=== PATIENT | female | born 1960 | race Caucasian/White ===

== ENCOUNTER 2020-06-27 08:38 | Outpatient (CLI) | payer MEDICARE, MEDICAID, SELFPAY ==
--- NOTE | ~2020-06-27 | DEXA_ITS ---
BMD(1) Young-Adult(2) Age-Matched(3) Region (g/cm2) T-score Z-score WHO Classification L1 1.381 2.0 2.7 Normal L2 1.425 1.8 2.5 Normal L3 1.402 1.5 2.2 Normal L4 1.573 2.8 3.5 Normal L1-L4 1.455 2.1 2.8 Normal Trend: L1-L4 Change vs Change vs Measured Age BMD(1) Baseline Previous Date ([age]) (g/cm2) (%) (%) 06/27/2020 [age] 1[age]455 baseline - 1 - Statistically 68% of repeat scans fall within 1SD (+- 0.010 g/cm2 for AP Spine L1-L4) 2 - [place] (Combined [employer]ES (ages 20-30) / [employer] (ages 20-40)) AP Spine Reference Population (v112) 3 - Matched for Age, Weight (females 25-100 kg), Ethnic 11 - World Health Organization - Definition of Osteoporosis and Osteopenia for Women: Normal = T-score at or above -1.0 SD; Osteopenia = T-score between -1.0 and -2.5 SD; Osteoporosis = T-score at or below -2.5 SD; (WHO definitions only apply when a young healthy Women reference database is used to determine T-scores.) Printed: 06/27/2020 9:10:04 AM (13.60)76:3.00:50.00:12.0 0.00:10.38 0.60x1.05 27.6:%Fat=46.8% 0.00:0.00 0.00:0.00 Filename: [id number] Scan Mode: Standard;OneScan 37.0 Continuum [id number] BMD(1) Young-Adult(2,7) Age-Matched(3) Region (g/cm2) T-score Z-score WHO Classification Neck Left 0.851 -1.3 -0.4 Osteopenia Right 0.915 -0.9 0.1 Normal Mean 0.883 -1.1 -0.2 Osteopenia Difference 0.064 0.5 0.5 - Total Left 0.900 -0.9 -0.3 Normal Right 0.925 -0.7 -0.1 Normal Mean 0.912 -0.8 -0.2 Normal Difference 0.025 0.2 0.2 - Hip [place] Length Comparison (mm) (Right = 106.6 mm) (Mean = 104.5 mm) (Left = 107.7 mm) Trend: Total Mean Change vs Change vs Measured Age BMD(1) Baseline Previous Date [age]years) (g/cm2) (%) (%) 06/27/2020 60.2 0.912 baseline - 1 - Statistically 68% of repeat scans fall within 1SD (+- 0.010 g/cm2 for [employer]em[employer] Total) 2 - [place] (Combined [employer]ES (ages 20-30) / [employer] (ages 20-40)) Femur Reference Population (v112) 3 - Matched for Age, Weight (females 25-100 kg), Ethnic 7 - [employer] Total T-score difference is 0.2. Asymmetry is None. 11 - World Health Organization - Definition of Osteoporosis and Osteopenia for Women: Normal = T-score at or above -1.0 SD; Osteopenia = T-score between -1.0 and -2.5 SD; Osteoporosis = T-score at or below -2.5 SD; (WHO definitions only apply when a young healthy Women reference database is used to determine T-scores.) Printed: 06/27/2020 9:10:04 AM (13.60); Filename: [id number]; Right Femur; 19.3:%Fat=24.1%; Neck Angle (deg)= 58; Scan Mode: Standard 37.0 uGy; Left Femur; 18.5:%Fat=23.6%; Neck Angle (deg)= 63; Scan Mode: Standard 37.0 uGy [employer] [id number] Dear Elias Ochoa, Your patient Gladis Mallory completed a BMD test on 06/27/2020 using the [employer] DXA System (analysis version: 13.60) manufactured by [employer]. The following summarizes the results of our evaluation. PATIENT BIOGRAPHICAL: Name: Gladis Mallory Date: 1960 Height: 63.0 in. Gender: Female
== END 2020-06-27 08:39 | disposition home or self-care (01) ==
LOC: CHSIMG 08:41
PROVIDERS: PCP Family Medicine; Visit Provider Family Medicine
DX: Z78.0 Asymptomatic menopausal state (principal); E55.9 Vitamin D deficiency, unspecified
CPT/HCPCS: 77080